=== PATIENT | male | born 1950 | race Two or more races ===

== ENCOUNTER 2021-10-16 15:08 | Emergency (ER) | payer SELFPAY ==
[~2021-10-16] VITALS: Ht 182.9 cm; Wt 77.0 kg
[2021-10-16 15:20] VITALS: BP 161/95
== END 2021-10-16 17:36 | disposition home or self-care (01) ==
LOC: ER 15:08
DX: S90.821A Blister (nonthermal), right foot, initial encounter (principal); S90.822A Blister (nonthermal), left foot, initial encounter; X58.XXXA Exposure to other specified factors, initial encounter; M85.871 Other specified disorders of bone density and structure, right ankle and foot; Y93.89 Activity, other specified; Y92.89 Other specified places as the place of occurrence of the external cause; E11.9 Type 2 diabetes mellitus without complications; Z79.84 Long term (current) use of oral hypoglycemic drugs
CPT/HCPCS: 73620; 99283